=== PATIENT | male | born 1970 | race Two or more races ===

== ENCOUNTER 2017-07-11 15:42 | Inpatient (IN) | payer MEDICARE, OTHER ==
[~2017-07-11] VITALS: Ht 182.9 cm; Wt 61.2 kg
[2017-07-11 15:50] VITALS: BP 106/63
[2017-07-11 17:13] LABS: HEMATOCRIT 31.1 % (42.0-52.0); HEMOGLOBIN 10.4 G/DL (14.2-18.0); MEAN CORPUSCULAR VOLUME 89 FL (80-99); PLATELET COUNT 83 K/UL (150-450); RED BLOOD COUNT 3.51 M/UL (4.70-6.10); RED CELL DISTRIBUTION WIDTH 14.2 % (11.6-14.8); WHITE BLOOD COUNT 2.5 K/UL (4.8-10.8)
[2017-07-11 17:15] LABS: BASOPHILS % (AUTO) 1.6 % (0.0-2.0); EOSINOPHILS % (AUTO) 6.2 % (0.0-3.0); LYMPHOCYTES % (AUTO) 30.8 % (20.0-45.0); MONOCYTES % (AUTO) 8.7 % (1.0-10.0); NEUTROPHILS % (AUTO) 52.7 % (45.0-75.0)
[2017-07-11] MEDS ORDERED: VENLAFAXINE H37.5 MG ORAL (17:23)
[2017-07-11] MEDS ORDERED: FAMCICLOVIR500 MG ORAL (17:23)
[2017-07-11] MEDS ORDERED: FLUCONAZOLE100 MG ORAL (17:23)
[2017-07-11] MEDS ORDERED: GABAPENTIN300 MG ORAL (17:23)
[2017-07-11] MEDS ORDERED: ZYPREXA10 MG ORAL (17:23)
[2017-07-11 17:30] LABS: ANION GAP 8 mmol/L (5-15); BLOOD UREA NITROGEN 12 mg/dL (7-18); CALCIUM 7.8 MG/DL (8.5-10.1); CARBON DIOXIDE 23 MMOL/L (21-32); CHLORIDE 106 MMOL/L (98-107); CREATININE 0.7 MG/DL (0.55-1.30); POTASSIUM 3.6 MMOL/L (3.5-5.1); SODIUM 137 MMOL/L (136-145)
[2017-07-11 17:35] LABS: ALANINE AMINOTRANSFERASE 60 U/L (12-78); ALBUMIN 2.2 G/DL (3.4-5.0); ALBUMIN/GLOBULIN RATIO 0.5 (1.0-2.7); ALKALINE PHOSPHATASE 220 U/L (46-116); ASPARTATE AMINO TRANSFERASE 69 U/L (15-37); BILIRUBIN,TOTAL 0.5 MG/DL (0.2-1.0)
[2017-07-11 18:39] VITALS: BP 121/79
[2017-07-11 19:15] LABS: APPEARANCE,URINE CLEAR; BILIRUBIN, URINE NEGATIVE (NEGATIVE); GLUCOSE, URINE (UA) NEGATIVE (NEGATIVE); KETONES,URINE NEGATIVE (NEGATIVE); LEUKOCYTE ESTERASE ,URINE 1+ (NEGATIVE); NITRITE,URINE NEGATIVE (NEGATIVE); PH,URINE 6 (4.5-8.0); PROTEIN,URINE NEGATIVE (NEGATIVE); UROBILINOGEN,URINE 4 MG/DL (0.0-1.0)
[2017-07-11 19:16] LABS: COLOR,URINE YELLOW
[2017-07-11 19:32] VITALS: BP 117/71
[2017-07-11] MEDS: D5NS 1,000 ML IV SCH (21:45)
[2017-07-11 22:30] VITALS: BP 113/67
--- NOTE | 2017-07-11 22:57 | Emergency Room Report ---
History of Present Illness General Chief Complaint: Abdominal Pain Source: Patient Present Illness HPI 46-year-old male presents ED for evaluation. Complaining of abdominal pain with nausea and vomiting. Also complaining of diarrhea. Pain as cramping, 7/10 , nonradiating. Started 3 days ago. Patient states he has history of full- blown AIDS. States his CD4 count is very low. Denies fevers or chills. Denies chest pain or shortness of breath. No other aggravating relieving factors. Denies any other associated symptoms Allergies: Coded Allergies: No Known Allergies (Unverified , 07/11/17) Patient History Past Medical History: HIV Past Surgical History: none Pertinent Family History: none Social History: Denies: smoking, alcohol use, drug use Immunizations: UTD Reviewed Nursing Documentation: PMH: Agreed, PSxH: Agreed Nursing Documentation-PMH Past Medical History: No History, Except For Hx Cardiac Problems: No Hx Cancer: Yes Hx Gastrointestinal Problems: Yes Hx Neurological Problems: No Review of Systems All Other Systems: negative except mentioned in HPI Physical Exam Vital Signs Date Time Temp Pulse Resp B/P (MAP) Pulse Ox O2 Delivery O2 Flow Rate FiO2 07/11/17 15:35 98.1 92 18 106/63 98 Room Air Sp02 EP Interpretation: reviewed, normal General Appearance: alert, GCS 15, non-toxic, cachetic, thin Head: normocephalic, atraumatic Eyes: bilateral eye normal inspection, bilateral eye PERRL ENT: hearing grossly normal, normal pharynx, no angioedema, normal voice Neck: full range of motion, supple/symm/no masses Respiratory: chest non-tender, lungs clear, normal breath sounds, speaking full sentences Cardiovascular #1: regular rate, rhythm, no edema Cardiovascular #2: 2+ carotid (R), 2+ carotid (L), 2+ radial (R), 2+ radial (L) , 2+ dorsalis pedis (R), 2+ dorsalis pedis (L) Gastrointestinal: normal bowel sounds, non tender, soft, non-distended, no guarding, no rebound Rectal: deferred Genitourinary: normal inspection, no CVA tenderness Musculoskeletal: back normal, gait/station normal, normal range of motion, non- tender Neurologic: alert, oriented x3, responsive, motor strength/tone normal, sensory intact, speech normal Psychiatric: judgement/insight normal, memory normal, mood/affect normal, no suicidal/homicidal ideation Reflexes: 3+ bicep (R), 3+ bicep (L), 3+ tricep (R), 3+ tricep (L), 3+ knee (R) , 3+ knee (L) Skin: normal color, no rash, warm/dry, well hydrated Lymphatic: no adenopathy Medical Decision Making Diagnostic Impression: Primary Impression: Colitis ER Course Hospital Course 46 yo M presents with vomiting and diarrhea Differential diagnoses include: gastroenteritis, colitis, dehydration Clinical course Patient placed on stretcher. After initial history and physical I ordered labs , IV fluids, pain medications Labs - leukopenia noted, Hb/Hct stable. electrolytes ok. Given patient's immunosuppressive state and persistent diarrhea believe he should be admitted. case endorsed to Dr Michaud I feel this is a highly complex case requiring extensive working including EKG/ Rhythm strip, Xray/CT/US, Blood/urine lab work, repeat exams while in ED, and administration of strong opiates/narcotics for pain control, admission to hospital or close patient follow up. Diagnosis - colitis Patient admitted to hospital in serious condition Labs Test 07/11/17 17:00 07/11/17 19:00 White Blood Count 2.5 K/UL (4.8-10.8) Red Blood Count 3.51 M/UL (4.70-6.10) Hemoglobin 10.4 G/DL (14.2-18.0) Hematocrit 31.1 % (42.0-52.0) Mean Corpuscular Volume 89 FL (80-99) Mean Corpuscular Hemoglobin 29.7 PG (27.0-31.0) Mean Corpuscular Hemoglobin Concent 33.5 G/DL (32.0-36.0) Red Cell Distribution Width 14.2 % (11.6-14.8) Platelet Count 83 K/UL (150-450) Mean Platelet Volume 9.9 FL (6.5-10.1) Neutrophils (%) (Auto) 52.7 % (45.0-75.0) Lymphocytes (%) (Auto) 30.8 % (20.0-45.0) Monocytes (%) (Auto) 8.7 % (1.0-10.0) Eosinophils (%) (Auto) 6.2 % (0.0-3.0) Basophils (%) (Auto) 1.6 % (0.0-2.0) Sodium Level 137 MMOL/L (136-145) Potassium Level 3.6 MMOL/L (3.5-5.1) Chloride Level 106 MMOL/L (98-107) Carbon Dioxide Level 23 MMOL/L (21-32) Anion Gap 8 mmol/L (5-15) Blood Urea Nitrogen 12 mg/dL (7-18) Creatinine 0.7 MG/DL (0.55-1.30) Estimat Glomerular Filtration Rate > 60 mL/min (>60) Glucose Level 107 MG/DL (74-106) Lactic Acid Level 1.40 mmol/L (0.66-2.22) Calcium Level 7.8 MG/DL (8.5-10.1) Total Bilirubin 0.5 MG/DL (0.2-1.0) Aspartate Amino Transf (AST/SGOT) 69 U/L (15-37) Alanine Aminotransferase (ALT/SGPT) 60 U/L (12-78) Alkaline Phosphatase 220 U/L (46-116) Total Protein 6.7 G/DL (6.4-8.2) Albumin 2.2 G/DL (3.4-5.0) Globulin 4.5 g/dL Albumin/Globulin Ratio 0.5 (1.0-2.7) Urine Color Yellow Urine Appearance Clear Urine pH 6 (4.5-8.0) Urine Specific [place] 1.015 (1.005-1.035) Urine Protein Negative (NEGATIVE) Urine Glucose (UA) Negative (NEGATIVE) Urine Ketones Negative (NEGATIVE) Urine Occult Blood Negative (NEGATIVE) Urine Nitrite Negative (NEGATIVE) Urine Bilirubin Negative (NEGATIVE) Urine Urobilinogen 4 MG/DL (0.0-1.0) Urine Leukocyte Esterase 1+ (NEGATIVE) Urine RBC 0-2 /HPF (0 - 0) Urine WBC 0-2 /HPF (0 - 0) Urine Squamous Epithelial Cells Occasional /LPF Urine Bacteria None /HPF (NONE) Last Vital Signs Date Time Temp Pulse Resp B/P (MAP) Pulse Ox O2 Delivery O2 Flow Rate FiO2 07/11/17 22:35 98.8 82 18 113/67 98 Room Air Status: improved Disposition: ADMITTED INPATIENT Condition: Serious Referrals: NON PHYSICIAN (PCP) JOSE BRUNSON M.D. Jul 11, 2017 22:57
[2017-07-12 05:34] LABS: HEMATOCRIT 30.3 % (42.0-52.0); HEMOGLOBIN 10.2 G/DL (14.2-18.0); MEAN CORPUSCULAR VOLUME 89 FL (80-99); PLATELET COUNT 71 K/UL (150-450); RED BLOOD COUNT 3.39 M/UL (4.70-6.10); RED CELL DISTRIBUTION WIDTH 14.7 % (11.6-14.8); WHITE BLOOD COUNT 2.2 K/UL (4.8-10.8)
[2017-07-12 05:54] LABS: ANION GAP 6 mmol/L (5-15); BLOOD UREA NITROGEN 11 mg/dL (7-18); CALCIUM 7.4 MG/DL (8.5-10.1); CARBON DIOXIDE 23 MMOL/L (21-32); CHLORIDE 110 MMOL/L (98-107); CREATININE 0.7 MG/DL (0.55-1.30); POTASSIUM 3.6 MMOL/L (3.5-5.1); SODIUM 139 MMOL/L (136-145)
[2017-07-12 05:58] LABS: ALANINE AMINOTRANSFERASE 53 U/L (12-78); ALBUMIN 1.9 G/DL (3.4-5.0); ALBUMIN/GLOBULIN RATIO 0.5 (1.0-2.7); ALKALINE PHOSPHATASE 199 U/L (46-116); ASPARTATE AMINO TRANSFERASE 63 U/L (15-37); BILIRUBIN,TOTAL 0.5 MG/DL (0.2-1.0)
[2017-07-12] MEDS: D5NS 1,000 ML IV SCH ×2 (07:45→17:43)
--- NOTE | 2017-07-12 09:43 | Diagnostic Imaging Report ---
Indication: Weakness, diarrheal illness, history of HIV/AIDS Technique: XRAY Chest 1v Comparison: None Findings: Heart size within upper limits for normal. Mediastinal contours are sharp. There is no definite focal airspace consolidation, no pleural effusion or pneumothorax. No acute osseous abnormality is identified. Visualized bowel gas pattern is unremarkable. Impression: No definite focal airspace consolidation. No pleural effusion or pneumothorax.
--- NOTE | 2017-07-12 11:14 | General Progress Note ---
Assessment/Plan Assessment/Plan GI CONSULT Assessment - poor historian - AIDS - Claribel esophagitis - N/V - Diarrhe - h/o HEP B - ?h/o colon CA Recommendations - Nystatin trial - ID eval - check CT abd/pelvis - stool cultures - check tumor markers Thank you Melody Jang Subjective Allergies: Coded Allergies: No Known Allergies (Unverified , 07/11/17) Objective Last 24 Hour Vital Signs Date Time Temp Pulse Resp B/P (MAP) Pulse Ox O2 Delivery O2 Flow Rate FiO2 07/11/17 22:35 98.8 82 18 113/67 98 Room Air 07/11/17 22:30 98.8 82 18 113/67 98 Room Air 07/11/17 19:32 98.1 88 16 117/71 97 Room Air 07/11/17 18:39 87 18 121/79 98 Room Air 07/11/17 15:50 98.1 18 106/63 98 Room Air 07/11/17 15:35 98.1 92 18 106/63 98 Room Air Intake and Output 07/11/17 07/12/17 19:00 07:00 Intake Total 0 ml 500 ml Balance 0 ml 500 ml Intake Oral 0 ml IV Total 500 ml Laboratory Tests 07/11/17 17:00: White Blood Count 2.5L, Red Blood Count 3.51L, Hemoglobin 10.4L, Hematocrit 31.1L, Mean Corpuscular Volume 89, Mean Corpuscular Hemoglobin 29.7, Mean Corpuscular Hemoglobin Concent 33.5, Red Cell Distribution Width 14.2, Platelet Count 83L, Mean Platelet Volume 9.9, Neutrophils (%) (Auto) 52.7, Lymphocytes (% ) (Auto) 30.8, Monocytes (%) (Auto) 8.7, Eosinophils (%) (Auto) 6.2H, Basophils (%) (Auto) 1.6, Sodium Level 137, Potassium Level 3.6, Chloride Level 106, Carbon Dioxide Level 23, Anion Gap 8, Blood Urea Nitrogen 12, Creatinine 0.7, Estimat Glomerular Filtration Rate > 60, Glucose Level 107H, Lactic Acid Level 1.40, Calcium Level 7.8L, Total Bilirubin 0.5, Aspartate Amino Transf (AST/SGOT ) 69H, Alanine Aminotransferase (ALT/SGPT) 60, Alkaline Phosphatase 220H, Total Protein 6.7, Albumin 2.2L, Globulin 4.5, Albumin/Globulin Ratio 0.5L 07/11/17 19:00: Urine Color Yellow, Urine Appearance Clear, Urine pH 6, Urine Specific [place] 1.015, Urine Protein Negative, Urine Glucose (UA) Negative, Urine Ketones Negative, Urine Occult Blood Negative, Urine Nitrite Negative, Urine Bilirubin Negative, Urine Urobilinogen 4H, Urine Leukocyte Esterase 1+H, Urine RBC 0-2H, Urine WBC 0-2, Urine Squamous Epithelial Cells Occasional, Urine Bacteria None 07/12/17 05:10: White Blood Count 2.2L, Red Blood Count 3.39L, Hemoglobin 10.2L, Hematocrit 30.3L, Mean Corpuscular Volume 89, Mean Corpuscular Hemoglobin 29.9, Mean Corpuscular Hemoglobin Concent 33.6, Red Cell Distribution Width 14.7, Platelet Count 71L, Mean Platelet Volume 9.1, Neutrophils (%) (Auto) , Lymphocytes (%) ( Auto) , Monocytes (%) (Auto) , Eosinophils (%) (Auto) , Basophils (%) (Auto) , Sodium Level 139, Potassium Level 3.6, Chloride Level 110H, Carbon Dioxide Level 23, Anion Gap 6, Blood Urea Nitrogen 11, Creatinine 0.7, Estimat Glomerular Filtration Rate > 60, Glucose Level 102, Calcium Level 7.4L, Total Bilirubin 0.5, Aspartate Amino Transf (AST/SGOT) 63H, Alanine Aminotransferase ( ALT/SGPT) 53, Alkaline Phosphatase 199H, Total Protein 6.0L, Albumin 1.9L, Globulin 4.1, Albumin/Globulin Ratio 0.5L, Differential Total Cells Counted 100 , Neutrophils % (Manual) 38L, Lymphocytes % (Manual) 46H, Monocytes % (Manual) 10, Eosinophils % (Manual) 6H, Basophils % (Manual) 0, Band Neutrophils 0, Platelet Estimate DecreasedL, Platelet Morphology Normal, Hypochromasia 1+, Anisocytosis 1+ Height (Feet): 6 Height (Inches): 0.00 Weight (Pounds): 135 WALLYPRASHANTH LINDER Jul 12, 2017 11:14
[2017-07-12] MEDS: Venlafaxine XR 75mg cap ORAL SCH (11:17)
[2017-07-12 12:00] VITALS: BP 104/64
[2017-07-12] MEDS: Nystatin Susp 500,000 units/5ml ORAL SCH ×3 (14:37→21:15)
[2017-07-12] MEDS ORDERED: D5NS 1000ml IV ONE (15:10)
[2017-07-12] MEDS ORDERED: Tubing IV Secondary IV ONE (15:10)
--- NOTE | 2017-07-12 19:15 | History and Physical Report ---
DATE OF ADMISSION: 07/11/2017 REASON FOR ADMISSION: Abdominal pain and colitis. HISTORY OF PRESENT ILLNESS: The patient is a 46-year-old male with history of abdominal pain with nausea and vomiting, also with diarrhea. The patient describes the pain as cramping, nonradiating. The patient noticed the pain has been ongoing for 3 days. The patient with history of AIDS and states CD4 count is low. Denies any fevers or chills. Denies any aggravating factors. The patient is seen and evaluated in the emergency room and noted to have evidence of colitis, also with evidence of leukopenia. The patient now admitted for further evaluation, hydration, and GI and ID evaluation. PAST MEDICAL HISTORY: Notable for HIV/age. MEDICATIONS: Reviewed. ALLERGIES: Reviewed. SOCIAL HISTORY: Nonsmoker and nondrinker. The patient is disabled. REVIEW OF SYSTEMS: All 10 points reviewed and otherwise negative with the exception of the above. PHYSICAL EXAMINATION: GENERAL: This is a well-developed male, somewhat frail. VITAL SIGNS: Blood pressure 113/67, pulse 82, respiratory rate 18, temperature 98.8, and saturation 98%. HEENT: Fairly negative. Extraocular movements are grossly intact. NECK: Supple. No adenopathy. LUNGS: Otherwise fairly clear. No rhonchi or wheezes. CARDIAC: Normal S1 and S2. Regular rate and rhythm without murmurs, rubs, or gallops. ABDOMEN: Soft, but has some mild tenderness diffusely. EXTREMITIES: No cyanosis or clubbing. No edema. NEUROLOGICAL: Grossly nonfocal. SKIN: No clear rashes. LABORATORY DATA: All reviewed. Notable for elevated liver enzymes. The albumin is very low at 1.9. White count 2.2, hemoglobin 10.2, hematocrit 30, and platelets of 71,000. IMPRESSION: 1. Evidence of colitis. 2. Abdominal pain. 3. Acquired immune deficiency syndrome. 4. Pancytopenia. 5. Human immunodeficiency virus. 6. Evidence of elevated liver enzymes. 7. Severe protein-calorie malnutrition. RECOMMENDATIONS: Supportive care. Empiric Flagyl. Check stool. Resume HIV medication. Obtain ID evaluation. Obtain GI evaluation. Obtain T-cell subsets as well as viral load. Clear liquid diet and antiemetics. Stabilizing disposition when patient improves. Julio Michaud M.D. DR: SARAHY JOB#: [id number] CC:
[2017-07-12 20:44] LABS: FERRITIN 222 NG/ML (8-388); LACTATE DEHYDROGENASE 225 U/L (81-234)
--- NOTE | 2017-07-12 21:30 | Consultation ---
DATE OF CONSULTATION: 07/12/2017 INFECTIOUS DISEASES CONSULTATION CONSULTING PHYSICIAN: Lucho Kingsley M.D. REFERRING PHYSICIAN: Julio Michaud M.D. REASON FOR CONSULTATION: Colitis. HISTORY OF PRESENTING ILLNESS: This is a 46-year-old gentleman with a history of HIV, T-cell count unknown, who comes in with abdominal pain, nausea, and vomiting as well as diarrhea. He has AIDS. He does not recall his T-cell count. He was found to have colitis and an Infectious Diseases consultation has been obtained for antibiotics. PAST MEDICAL HISTORY: 1. History of HIV. 2. History of PCP. 3. History of syphilis, status post treatment. 4. History of hepatitis B. 5. ? history of colon CA. 6. Claribel esophagitis. MEDICATIONS: As an inpatient, he is on famotidine, nystatin, famciclovir, gabapentin, Zyprexa, Effexor, , Emtriva, Flagyl, Zofran, and Tylenol. ALLERGIES: No known drug allergies. SOCIAL HISTORY: He does not smoke, drink, or use drugs. FAMILY HISTORY: Unknown. REVIEW OF SYSTEMS: RESPIRATORY: He had fever and chills. No cough. No shortness of breath or chest pain. CARDIAC: No chest pain. No palpitations. No dizziness. No syncope. GASTROINTESTINAL: He had nausea and vomiting. He complains of abdominal pain and diarrhea. PHYSICAL EXAMINATION: VITAL SIGNS: Temperature of 98.8, T-max of 98.8, pulse of 82, respiratory rate of 18, blood pressure 113/67, and O2 saturation of 98%. HEENT: Pupils equally reactive to light and accommodation. Mouth appears clean without thrush. NECK: Supple. No adenopathy. No JVD. CARDIOVASCULAR: Regular rate and rhythm. No murmurs. LUNGS: Clear to auscultation bilaterally. No crackles. No wheezes. ABDOMEN: Soft and nontender. No organomegaly. EXTREMITIES: No cyanosis. No clubbing. No edema. LABORATORY AND DIAGNOSTIC DATA: White count 2.2, hemoglobin 10.2, hematocrit 30.3, MCV 89, and platelet count of 71. Sodium 139, potassium 3.6, chloride 110, bicarb 23, BUN 11, creatinine 0.7, glucose 102, calcium 7.4. Total bilirubin 0.5. AST 63, ALT 53, and alkaline phosphatase 199. Total protein 6, albumin 1.9. UA is showing 0 to 2 white cells. Chest x-ray showing no definite consolidation. No pleural effusion or pneumothorax noted. ASSESSMENT: This is a 46-year-old gentleman with history of acquired immunodeficiency syndrome, who comes in with nausea, vomiting, abdominal pain, and diarrhea. There is a concern for colitis, would be concerned regarding Cytomegalovirus colitis or possibly ischemic colitis or Clostridium difficile colitis or possible gastroenteritis. PLAN: 1. Continue Flagyl. 2. We will order a CMV PCR. 3. We will order stool for C. difficile colitis and stool cultures. 4. We will follow up cultures and adjust antibiotics accordingly. I would like to thank, Dr. Michaud, for this consultation. Lucho Kingsley M.D. DR: Hardeep JOB#: [id number] CC: Julio Michaud M.D.; Fax#: [phone]
[2017-07-12 21:33] LABS: % IRON SATURATION 22 % (15-50); IRON 45 ug/dL (50-175); TOTAL IRON BINDING CAPACITY 209 ug/dL (250-450)
[2017-07-13] VITALS: BP 99/75
--- NOTE | 2017-07-13 01:00 | Consultation ---
DATE OF CONSULTATION: 07/12/2017 GASTROENTEROLOGY CONSULTATION CONSULTING PHYSICIAN: Jude Jang M.D. CHIEF COMPLAINT: I was asked to see this patient by Dr. Julio Michaud for evaluation of abdominal issues. HISTORY OF PRESENT ILLNESS: The patient is a 46-year-old man, who is a poor historian, who comes in with somewhat vague abdominal complaints. The patient states that he has had nausea, vomiting, and loose stools for about three days. He gives very little details, but he does say yes, advanced AIDS and he is being followed by outside physicians. The patient wants to eat and he is hungry and he is walking around the hallway. He states that he has had extensive evaluations and he states he brought some records, but the records are mainly patient registration information. The patient states he has had a history of colon cancer, but it was not removed and in fact "this has shrunken in size with time." He states his last endoscopy and colonoscopy was about a year ago by another outdoor studies director. He does complain of sore throat from Claribel pharyngitis, which can be confirmed on examination. He also has a history of diabetes, hepatitis B, and renal failure, but details are not clear. PAST MEDICAL HISTORY: History of AIDS, colon cancer, diabetes, renal failure, hepatitis B virus, and Claribel esophagitis. MEDICATIONS: See the chart list for details. FAMILY HISTORY: Noncontributory. SOCIAL HISTORY: The patient lives in [facility] and his mother helps to look after his affairs. REVIEW OF SYSTEMS: Otherwise negative. PHYSICAL EXAMINATION: GENERAL: Cachectic, chronically-ill appearing man, seen in his room. HEENT: Normocephalic and atraumatic. There is some temporal wasting. Dentition is fair. Oropharynx showed Claribel pharyngitis. NECK: Supple. CHEST: Clear to auscultation. CARDIOVASCULAR: Revealed a regular rate. ABDOMEN: Soft, somewhat scaphoid. There is no tenderness. EXTREMITIES: Revealed no edema. LABORATORY DATA: Noted. The patient had some degree of pancytopenia. ASSESSMENT: This patient has acquired immunodeficiency syndrome and appears to be chronically ill and cachectic. Based on the information and presentation, I suspect that he is poorly controlled, but his T-cell count and viral load will have to be checked. As such, his previous opportunistic infections and his stool should be checked for various elements. Infectious Diseases consult should be called to see the patient as well. In the meantime, I will check the stool cultures and Clostridium difficile. Further assays can also be done based on the results of preliminary evaluation. The patient states he has had some complaints of nausea and vomiting, but it has not done so yet over here. He clearly has Claribel pharyngitis on examination and therefore he would benefit from nystatin trial. He also has had abnormal liver tests, which may be due to his self-reported history of hepatitis B. I will check his hepatitis markers, but we will also check a CT scan of the abdomen and pelvis to evaluate various organs including colon. RECOMMENDATIONS: Per above discussion and per orders written in the written. Thank you for asking me to participate in the care of this patient. Jude Jang M.D. DR: MICHAEL JOB#: [id number] CC: REBECCA
[2017-07-13 04:00] VITALS: BP 100/56
[2017-07-13] MEDS: D5NS 1,000 ML IV SCH ×3 (05:31→23:45)
[2017-07-13 08:01] VITALS: BP 109/69
[2017-07-13] MEDS: Nystatin Susp 500,000 units/5ml ORAL SCH ×4 (08:30→21:00)
[2017-07-13] MEDS: Famciclovir 500 tab ORAL SCH ×5 (08:36→17:36)
[2017-07-13] MEDS: Venlafaxine XR 75mg cap ORAL SCH (08:36)
--- NOTE | 2017-07-13 08:57 | General Progress Note ---
Assessment/Plan Assessment/Plan IMPRESSION: 1. Evidence of colitis. 2. Abdominal pain. 3. Acquired immune deficiency syndrome. 4. Pancytopenia. 5. Human immunodeficiency virus. 6. Evidence of elevated liver enzymes. 7. Severe protein-calorie malnutrition. PLAN consultants appreciated await Tcell subsets and viral load await stool results IV hydration await imaging will likely need placement impression, plan, and exam edited and reviewed in detail care discussed with RN Subjective Allergies: Coded Allergies: No Known Allergies (Unverified , 07/11/17) Subjective care noted and reviewed remains weak some pain Objective Last 24 Hour Vital Signs Date Time Temp Pulse Resp B/P (MAP) Pulse Ox O2 Delivery O2 Flow Rate FiO2 07/13/17 08:01 98.3 72 19 109/69 100 07/13/17 04:00 97.9 73 20 100/56 97 07/13/17 00:00 97.9 72 21 99/75 100 07/12/17 16:00 98.2 82 16 97 Nasal Cannula 2.0 07/12/17 12:00 98.2 82 18 104/64 98 Intake and Output 07/12/17 07/13/17 19:00 07:00 Intake Total 500 ml Balance 500 ml IV Total 500 ml Laboratory Tests 07/12/17 18:26: Reticulocyte Count 0.5, Iron Level 45L, Total Iron Binding Capacity 209L, Percent Iron Saturation 22, Unsaturated Iron Binding 164, Ferritin 222, Lactate Dehydrogenase 225, Vitamin B12 Level > 2000H, Folate 8.5L Height (Feet): 6 Height (Inches): 0.00 Weight (Pounds): 135 Objective GENERAL: This is a well-developed male, weak HEENT: Fairly negative. Extraocular movements are grossly intact. NECK: Supple. No adenopathy. LUNGS: Otherwise fairly clear. No rhonchi or wheezes. CARDIAC: Normal S1 and S2. Regular rate and rhythm without murmurs, rubs, or gallops. ABDOMEN: Soft, but has some mild tenderness diffusely. no HSM no distention EXTREMITIES: No cyanosis or clubbing. No edema. NEUROLOGICAL: Grossly nonfocal. SKIN: No clear rashes. SID CASEY Jul 13, 2017 08:57
--- NOTE | 2017-07-13 09:51 | Infectious Diseases Prog Note ---
Assessment/Plan Assessment/Plan A; Abdominal pain HIV pancytopenia P Continue Flagyl Continue HIV treatment will f/u CT scan of abdomen & Pelvis will f/u CD4 count & HIV viral load Subjective ROS Limited/Unobtainable: No Constitutional: Reports: no symptoms Cardiovascular: Reports: no symptoms Gastrointestinal/Abdominal: Reports: other - pain, no diarrhea Genitourinary: Reports: no symptoms Neurologic: Reports: no symptoms Allergies: Coded Allergies: No Known Allergies (Unverified , 07/11/17) Objective Vital Signs Last 24 Hour Vital Signs Date Time Temp Pulse Resp B/P (MAP) Pulse Ox O2 Delivery O2 Flow Rate FiO2 07/13/17 08:01 98.3 72 19 109/69 100 07/13/17 04:00 97.9 73 20 100/56 97 07/13/17 00:00 97.9 72 21 99/75 100 07/12/17 16:00 98.2 82 16 97 Nasal Cannula 2.0 07/12/17 12:00 98.2 82 18 104/64 98 Height (Feet): 6 Height (Inches): 0.00 Weight (Pounds): 135 General Appearance: no acute distress HEENT: other - poor dentition Cardiovascular: normal rate Abdomen: soft, non tender Extremities: no edema Neurologic/Psychiatric: alert, oriented x 3, responsive Microbiology Date/Time Source Procedure Growth Status 07/11/17 17:00 Blood Blood Culture - Preliminary NO GROWTH AFTER 24 HOURS Resulted 07/11/17 16:45 Blood Blood Culture - Preliminary NO GROWTH AFTER 24 HOURS Resulted Laboratory Tests Test 07/12/17 18:26 Reticulocyte Count 0.5 % (0.0-2.0) Iron Level 45 ug/dL (50-175) L Total Iron Binding Capacity 209 ug/dL (250-450) L Percent Iron Saturation 22 % (15-50) Unsaturated Iron Binding 164 ug/dL (112-346) Ferritin 222 NG/ML (8-388) Lactate Dehydrogenase 225 U/L (81-234) Vitamin B12 Level > 2000 PG/ML (193-986) H Folate 8.5 NG/ML (8.6-58.9) L Current Medications Medications (Trade) Dose Ordered Sig/Lonnie Route PRN Reason Start Time Stop Time Status Last Admin Dose Admin Acetaminophen (Tylenol) 650 mg Q4HR PRN ORAL MILD PAIN, FEVER >100.5 07/11/17 21:45 08/10/17 21:44 Darunavir (Prezista) 800 mg DAILY ORAL 07/12/17 09:00 08/11/17 08:59 UNV Dextrose/Sodium Chloride 1,000 ml @ 100 mls/hr Q10H IV 07/11/17 21:45 08/10/17 21:44 07/13/17 05:31 Emtricitabine (Emtriva) 200 mg DAILY ORAL 07/12/17 09:00 08/11/17 08:59 UNV Famciclovir (Famvir) 500 mg TID ORAL 07/12/17 09:00 08/11/17 08:59 Famotidine (Pepcid) 20 mg BID ORAL 07/12/17 18:00 08/11/17 17:59 07/12/17 17:51 Gabapentin (Neurontin) 300 mg THREE TIMES A DAY ORAL 07/12/17 09:00 08/11/17 08:59 07/13/17 08:36 Metronidazole 100 ml @ 100 mls/hr Q8HR IVPB 07/11/17 22:00 07/18/17 21:59 07/13/17 05:31 Nystatin (Nystatin) 5 ml QID ORAL 07/12/17 13:00 07/19/17 12:59 07/13/17 08:30 Ondansetron HCl (Zofran) 4 mg Q6HR PRN IVP Nausea & Vomiting 07/11/17 21:45 08/10/17 21:44 07/13/17 08:36 Patient Own Medication (Patient's Own Med) 1 ea DAILY ORAL 07/12/17 09:00 08/11/17 08:59 UNV Venlafaxine HCl (Effexor-XR) 75 mg DAILY ORAL 07/12/17 09:00 08/11/17 08:59 07/12/17 11:17 BOBBI RON Jul 13, 2017 09:51
[2017-07-13] MEDS: Ritonavir 100mg tab ORAL SCH (12:00)
[2017-07-13] MEDS: Emtricitabine 200mg tab ORAL SCH (12:00)
[2017-07-13 15:49] VITALS: BP 124/75
[2017-07-13] MEDS ORDERED: Tubing IV Secondary IV ONE (16:05)
[2017-07-13] MEDS ORDERED: D5NS 1000ml IV ONE (16:05)
[2017-07-13] MEDS ORDERED: DESCOVY 200-251 EACH PO (17:04)
[2017-07-13] MEDS ORDERED: NEUPOGEN300 MCG/0. SUBQ (17:04)
[2017-07-13] MEDS ORDERED: CYCLOBENZAPRINE10 MG PO (17:04)
[2017-07-13] MEDS ORDERED: AZITHROMYCIN600 MG PO (17:04)
[2017-07-13] MEDS ORDERED: IMODIUM2 MG PO (17:04)
[2017-07-13] MEDS ORDERED: LORAZEPAM0.5 MG PO (17:04)
[2017-07-13] MEDS ORDERED: HYDROMORPHONE HC4 M1 PO (17:04)
[2017-07-13] MEDS ORDERED: FLUCONAZOLE200 MG PO (17:04)
[2017-07-13] MEDS ORDERED: SULFAMETHOXAZO1 EAC2 PO (17:04)
[2017-07-13] MEDS ORDERED: IBUPROFEN600 M1 PO (17:07)
--- NOTE | 2017-07-13 17:30 | Consultation ---
DATE OF CONSULTATION: 07/12/2017 NOTE: POOR AUDIO HEMATOLOGY/ONCOLOGY CONSULTATION CONSULTING PHYSICIAN: Dex Durham M.D. REQUESTING PHYSICIAN: Julio Michaud M.D. REASON FOR CONSULTATION: Evaluation of pancytopenia. IDENTIFICATION DATA: Dear Dr. Michaud, Thank you for the courtesy of this consultation. The patient is a pleasant with a past medical history, which is significant for HIV, at this time presents with nausea, vomiting as well as diarrhea, noted to be cramping, nonradiating has been ongoing for several days. Denies any fevers or chills. History of AIDS, CD4 count has been in the past, at this time presents to the ER, noted to have evidence of colitis, also evidence of leukopenia. Hematology Service was consulted for further evaluation and underlying treatment. PAST MEDICAL HISTORY: HIV history. MEDICATIONS: Reviewed. ALLERGIES: Reviewed. SOCIAL HISTORY: Nonsmoker and nondrinker. REVIEW OF SYSTEMS: CONSTITUTIONAL: No fevers, chills, or night sweats. SKIN: No rashes, bumps, or itching. HEENT: No headache, hearing or vision changes. BREASTS: No lumps, pain, or discharge. PULMONARY: No cough, sputum, or shortness of breath. GASTROINTESTINAL: nausea, vomiting, diarrhea. GENITOURINARY: No dysuria, frequency, or urgency. MUSCULOSKELETAL: No joint swelling, muscle pain, or trauma. PHYSICAL EXAMINATION: GENERAL: No acute distress. VITAL SIGNS: Reviewed. PULMONARY: Decreased breath sounds. CARDIOVASCULAR: Regular rate. No S3 or S4 reported. No gallops. ABDOMEN: Soft, nontender, and nondistended. Mild noted throughout. EXTREMITIES: No cyanosis, swelling, or edema reported. LABORATORY AND DIAGNOSTIC DATA: WBC noted to be currently at , hemoglobin 10.2, and hematocrit 30, and platelet count 71,000. ASSESSMENT AND RECOMMENDATIONS: 1. Pancytopenia, likely secondary to underlying history of human immunodeficiency virus/acquired immunodeficiency syndrome in the setting of his low CD4 count, currently hepatitis panel pending, human immunodeficiency virus status pending, CD4 count. ID Service consulted. 2. Anemia due to underlying chronic disease. I have obtained a hemoglobin . Hemoglobin goal is above 7. 3. Leukopenia, likely secondary to again underlying human immunodeficiency virus/acquired immunodeficiency syndrome in addition to underlying colitis. 4. Transaminitis, elevated liver function tests. Continue to closely monitor. 5. Severe protein-calorie malnutrition. 6. Diarrhea, currently is on Bactrim antibiotics. 7. due to dehydration. I appreciate the consultation. Dex Durham M.D. DR: FIDELINA JOB#: [id number] CC:
[2017-07-13 20:00] VITALS: BP 121/79
--- NOTE | 2017-07-13 20:06 | General Progress Note ---
Assessment/Plan Assessment/Plan Assessment - AIDS - Claribel esophagitis - N/V - improved - Diarrhea - improved - h/o HEP B - ? h/o colon CA Recommendations - Nystatin trial - ID eval - check CT abd/pelvis - pending - stool cultures - check tumor markers - hepatitis serologies pending Subjective Allergies: Coded Allergies: No Known Allergies (Unverified , 07/11/17) Subjective Feels OK no abd pain throat slightly better Objective Last 24 Hour Vital Signs Date Time Temp Pulse Resp B/P (MAP) Pulse Ox O2 Delivery O2 Flow Rate FiO2 07/13/17 15:49 97.0 76 19 124/75 98 07/13/17 08:01 98.3 72 19 109/69 100 07/13/17 04:00 97.9 73 20 100/56 97 07/13/17 00:00 97.9 72 21 99/75 100 Intake and Output 07/12/17 07/13/17 19:00 07:00 Intake Total 500 ml Balance 500 ml IV Total 500 ml Height (Feet): 6 Height (Inches): 0.00 Weight (Pounds): 135 Objective Thin WM NCAT supple CTA RRR soft ND NT no edema PRASHANTH HUDSON Jul 13, 2017 20:06
--- NOTE | 2017-07-13 23:55 | Consultation ---
History of Present Illness General Date patient seen: Jul 12, 2017 Chief Complaint: Abdominal Pain Present Illness HPI 46-year-old male with history of abdominal pain with nausea and vomiting, also with diarrhea. the pt has been noncooperative and refusing some meds Allergies: Coded Allergies: No Known Allergies (Unverified , 07/11/17) Medication History Scheduled Azithromycin* (Zithromax*), 1,200 MG PO ONCE A WEEK, (Reported) Cyclobenzaprine Hcl* (Flexeril*), 10 MG PO THREE TIMES A DAY, (Reported) Emtricitabine/Tenofov Alafenam (Descovy 200-25 mg Tablet), 200 MG PO DAILY, ( Reported) Famciclovir* (Famvir*), 500 MG ORAL TID, (Reported) Filgrastim (Neupogen), 300 MCG SUBQ 3XW, (Reported) Fluconazole (Fluconazole), 100 MG ORAL DAILY, (Reported) Fluconazole (Fluconazole), 200 MG PO DAILY, (Reported) Gabapentin* (Gabapentin*), 300 MG ORAL THREE TIMES A DAY, (Reported) Hydromorphone Hcl (Hydromorphone Hcl), 4 MG PO EVERY 4 HOURS, (Reported) Ibuprofen (Ibuprofen), 600 MG PO EVERY 6 HOURS, (Reported) Loperamide HCl (Loperamide), 2 MG PO NEEDED, (Reported) Lorazepam* (Lorazepam*), 0.5 MG PO FOUR TIMES A DAY, (Reported) Olanzapine* (Zyprexa*), 10 MG ORAL DAILY, (Reported) Sulfamethoxazole/Trimethoprim Ds Tablet* (Sulfamethoxazole-Tmp Ds Tablet*), 800 MG PO DAILY, (Reported) Venlafaxine Hcl* (Effexor*), 75 MG ORAL DAILY, (Reported) Patient History History Provided By: Medical Record Healthcare decision maker Resuscitation status Do Not Resuscitate Advanced Directive on File No Physical Exam Last 24 Hour Vital Signs Date Time Temp Pulse Resp B/P (MAP) Pulse Ox O2 Delivery O2 Flow Rate FiO2 07/13/17 20:00 97.7 66 18 121/79 98 07/13/17 15:49 97.0 76 19 124/75 98 07/13/17 08:01 98.3 72 19 109/69 100 07/13/17 04:00 97.9 73 20 100/56 97 07/13/17 00:00 97.9 72 21 99/75 100 Intake and Output 07/12/17 07/13/17 19:00 07:00 Intake Total 500 ml Balance 500 ml IV Total 500 ml Height (Feet): 6 Height (Inches): 0.00 Weight (Pounds): 135 Medications Current Medications Medications (Trade) Dose Ordered Sig/Lonnie Route PRN Reason Start Time Stop Time Status Last Admin Dose Admin Acetaminophen (Tylenol) 650 mg Q4HR PRN ORAL MILD PAIN, FEVER >100.5 07/11/17 21:45 08/10/17 21:44 Darunavir (Prezista) 800 mg DAILY ORAL 07/13/17 12:00 08/12/17 11:59 Dextrose/Sodium Chloride 1,000 ml @ 100 mls/hr Q10H IV 07/11/17 21:45 08/10/17 21:44 07/13/17 05:31 Emtricitabine (Emtriva) 200 mg DAILY ORAL 07/13/17 12:00 08/12/17 11:59 Famciclovir (Famvir) 500 mg TID ORAL 07/12/17 09:00 08/11/17 08:59 07/13/17 17:36 Famotidine (Pepcid) 20 mg BID ORAL 07/12/17 18:00 08/11/17 17:59 07/13/17 17:34 Gabapentin (Neurontin) 300 mg THREE TIMES A DAY ORAL 07/12/17 09:00 08/11/17 08:59 07/13/17 17:34 Metronidazole 100 ml @ 100 mls/hr Q8HR IVPB 07/11/17 22:00 07/18/17 21:59 07/13/17 21:45 Nystatin (Nystatin) 5 ml QID ORAL 07/12/17 13:00 07/19/17 12:59 07/13/17 17:33 Ondansetron HCl (Zofran) 4 mg Q6HR PRN IVP Nausea & Vomiting 07/11/17 21:45 08/10/17 21:44 07/13/17 08:36 Ritonavir (Norvir) 100 mg DAILY ORAL 07/13/17 12:00 08/12/17 11:59 Tenofovir Disoproxil Fumarate (Viread) 300 mg DAILY ORAL 07/13/17 12:00 08/12/17 11:59 Venlafaxine HCl (Effexor-XR) 75 mg DAILY ORAL 07/12/17 09:00 08/11/17 08:59 07/12/17 11:17 Assessment/Plan Status: stable Assessment/Plan bipolar hiv celexa 10mg qam the pt iss reluctant to take any other meds Valeriy Burger M.D. Jul 13, 2017 23:55
--- NOTE | 2017-07-14 00:25 | General Progress Note ---
Assessment/Plan Assessment/Plan 1. Pancytopenia, likely secondary to underlying history of human immunodeficiency virus/acquired immunodeficiency syndrome in the setting of his low CD4 count, --> currently hepatitis panel pending, human immunodeficiency virus status pending, check CD4 count. --> ID Service consulted. --> Trend cbc and monitor closely. 2. Anemia due to underlying chronic disease. --> Anemia workup reviewed. --> Hemoglobin goal is above 7. 3. Leukopenia, likely secondary to again underlying human immunodeficiency virus /acquired immunodeficiency syndrome in addition to underlying colitis. 4. Transaminitis, elevated liver function tests. Continue to closely monitor. 5. Severe protein-calorie malnutrition. 6. Diarrhea, currently is on Bactrim antibiotics. Subjective Date patient seen: Jul 13, 2017 Constitutional: Denies: no symptoms, chills, diaphoresis, fever, malaise, weakness, other HEENT: Denies: no symptoms, eye pain, blurred vision, tearing, double vision, ear pain, ear discharge, nose pain, nose congestion, throat pain, throat swelling, mouth pain, mouth swelling, other Cardiovascular: Denies: no symptoms, chest pain, edema, irregular heart rate, lightheadedness, palpitations, syncope, other Respiratory: Denies: no symptoms, cough, orthopnea, shortness of breath, SOB with excertion, SOB at rest, sputum, stridor, wheezing, other Gastrointestinal/Abdominal: Denies: no symptoms, abdomen distended, abdominal pain, black stools, tarry stools, blood in stool, constipated, diarrhea, difficulty swallowing, nausea, poor appetite, poor fluid intake, rectal bleeding , vomiting, other Genitourinary: Denies: no symptoms, burning, discharge, frequency, flank pain, hematuria, incontinence, pain, urgency, other Allergies: Coded Allergies: No Known Allergies (Unverified , 07/11/17) Subjective On antibiotics. Afebrile. Objective Last 24 Hour Vital Signs Date Time Temp Pulse Resp B/P (MAP) Pulse Ox O2 Delivery O2 Flow Rate FiO2 07/13/17 20:00 97.7 66 18 121/79 98 07/13/17 15:49 97.0 76 19 124/75 98 07/13/17 08:01 98.3 72 19 109/69 100 07/13/17 04:00 97.9 73 20 100/56 97 Intake and Output 07/13/17 07/14/17 19:00 07:00 Intake Total 560 ml Balance 560 ml Intake Oral 560 ml # Voids 4 Height (Feet): 6 Height (Inches): 0.00 Weight (Pounds): 135 General Appearance: confused Dex Durham Jul 14, 2017 00:25
[2017-07-14] MEDS: D5NS 1,000 ML IV SCH (05:18)
[2017-07-14 08:00] VITALS: BP 110/70
--- NOTE | 2017-07-14 08:06 | General Progress Note ---
Assessment/Plan Assessment/Plan IMPRESSION: 1. Evidence of colitis. 2. Abdominal pain. 3. Acquired immune deficiency syndrome. 4. Pancytopenia. 5. Human immunodeficiency virus. 6. Evidence of elevated liver enzymes. 7. Severe protein-calorie malnutrition. PLAN consultants appreciated refusing care return to same location patient aware of need for follow up refusing all care and imaging fully competent to make decisions and cleared by psych impression, plan, and exam edited and reviewed in detail care discussed with RN Subjective Allergies: Coded Allergies: No Known Allergies (Unverified , 07/11/17) Subjective care noted and reviewed remains weak refusing care per psych, ok to dc as patient competent Objective Last 24 Hour Vital Signs Date Time Temp Pulse Resp B/P (MAP) Pulse Ox O2 Delivery O2 Flow Rate FiO2 07/13/17 20:00 97.7 66 18 121/79 98 07/13/17 15:49 97.0 76 19 124/75 98 Intake and Output 07/13/17 07/14/17 19:00 07:00 Intake Total 560 ml 200 ml Balance 560 ml 200 ml Intake Oral 560 ml IV Total 200 ml # Voids 4 4 Height (Feet): 6 Height (Inches): 0.00 Weight (Pounds): 135 Objective GENERAL: This is a well-developed male, weak HEENT: Fairly negative. Extraocular movements are grossly intact. NECK: Supple. No adenopathy. LUNGS: Otherwise fairly clear. No rhonchi or wheezes. CARDIAC: Normal S1 and S2. Regular rate and rhythm without murmurs, rubs, or gallops. ABDOMEN: Soft, but has some mild tenderness diffusely. no HSM no distention EXTREMITIES: No cyanosis or clubbing. No edema. NEUROLOGICAL: Grossly nonfocal. SKIN: No clear rashes. SID CASEY Jul 14, 2017 08:06
[2017-07-14] MEDS ORDERED: Citalopram Hydrobromide 10mg Tab ORAL SCH (09:00)
[2017-07-14] MEDS: Emtricitabine 200mg tab ORAL SCH (09:00)
[2017-07-14] MEDS: Ritonavir 100mg tab ORAL SCH (09:00)
[2017-07-14] MEDS: Famciclovir 500 tab ORAL SCH ×2 (10:50→13:00)
[2017-07-14] MEDS: Nystatin Susp 500,000 units/5ml ORAL SCH ×2 (10:50→14:03)
[2017-07-14] MEDS: Venlafaxine XR 75mg cap ORAL SCH (10:50)
--- NOTE | 2017-07-14 12:12 | Infectious Diseases Prog Note ---
Assessment/Plan Assessment/Plan A; Abdominal pain HIV pancytopenia MRSA colonization P discontinue Flagyl Continue HIV treatment patient refused CT scan of abdomen & Pelvis will f/u CD4 count & HIV viral load Agree with discharge Subjective ROS Limited/Unobtainable: No Respiratory: Reports: no symptoms Gastrointestinal/Abdominal: Reports: other - heartburn Genitourinary: Reports: no symptoms Allergies: Coded Allergies: No Known Allergies (Unverified , 07/11/17) Objective Vital Signs Last 24 Hour Vital Signs Date Time Temp Pulse Resp B/P (MAP) Pulse Ox O2 Delivery O2 Flow Rate FiO2 07/14/17 08:00 97.6 77 18 110/70 93 07/13/17 20:00 97.7 66 18 121/79 98 07/13/17 15:49 97.0 76 19 124/75 98 Height (Feet): 6 Height (Inches): 0.00 Weight (Pounds): 135 General Appearance: no acute distress HEENT: mucous membranes moist Respiratory/Chest: lungs clear Cardiovascular: normal rate Abdomen: soft, non tender Extremities: no edema Neurologic/Psychiatric: alert, oriented x 3, responsive Microbiology Date/Time Source Procedure Growth Status 07/11/17 17:00 Blood Blood Culture - Preliminary NO GROWTH AFTER 48 HOURS Resulted 07/11/17 16:45 Blood Blood Culture - Preliminary NO GROWTH AFTER 48 HOURS Resulted 07/11/17 20:47 Nasal Nares Right MRSA Culture - Final Staphylococcus Aureus - Mrsa Complete 07/11/17 22:15 Rectal Mucosa VRE Culture - Final NO VANCOMYCIN RESISTANT ENTEROCOCCUS ... Complete Current Medications Medications (Trade) Dose Ordered Sig/Lonnie Route PRN Reason Start Time Stop Time Status Last Admin Dose Admin Acetaminophen (Tylenol) 650 mg Q4HR PRN ORAL MILD PAIN, FEVER >100.5 07/11/17 21:45 08/10/17 21:44 Al Hydroxide/Mg Hydroxide (Mylanta) 30 ml EVERY 4 HOURS PRN ORAL HEARTBURN 07/14/17 06:45 08/13/17 06:44 Citalopram Hydrobromide (celeXA) 10 mg DAILY ORAL 07/14/17 09:00 08/13/17 08:59 Darunavir (Prezista) 800 mg DAILY ORAL 07/13/17 12:00 08/12/17 11:59 Dextrose/Sodium Chloride 1,000 ml @ 100 mls/hr Q10H IV 07/11/17 21:45 08/10/17 21:44 07/14/17 05:18 Emtricitabine (Emtriva) 200 mg DAILY ORAL 07/13/17 12:00 08/12/17 11:59 Famciclovir (Famvir) 500 mg TID ORAL 07/12/17 09:00 08/11/17 08:59 07/14/17 10:50 Famotidine (Pepcid) 20 mg BID ORAL 07/12/17 18:00 08/11/17 17:59 07/14/17 10:49 Gabapentin (Neurontin) 300 mg THREE TIMES A DAY ORAL 07/12/17 09:00 08/11/17 08:59 07/14/17 10:50 Metronidazole 100 ml @ 100 mls/hr Q8HR IVPB 07/11/17 22:00 07/18/17 21:59 07/14/17 05:19 Nystatin (Nystatin) 5 ml QID ORAL 07/12/17 13:00 07/19/17 12:59 07/14/17 10:50 Ondansetron HCl (Zofran) 4 mg Q6HR PRN IVP Nausea & Vomiting 07/11/17 21:45 08/10/17 21:44 07/13/17 08:36 Ritonavir (Norvir) 100 mg DAILY ORAL 07/13/17 12:00 08/12/17 11:59 Tenofovir Disoproxil Fumarate (Viread) 300 mg DAILY ORAL 07/13/17 12:00 08/12/17 11:59 Venlafaxine HCl (Effexor-XR) 75 mg DAILY ORAL 07/12/17 09:00 08/11/17 08:59 07/14/17 10:50 BOBBI RON Jul 14, 2017 12:12
--- NOTE | 2017-07-14 12:19 | Wound Care Consultation ---
Wound Assessment Wound Assessment #1: Wound Number: 1 Wound Present on Admission: Yes New Wound: No Status Change of Wound: No Wound Location Body Site Modif: mid Wound Location Body Site: sacral Wound Type: pressure ulcer Bonny Test: Does not Bonny Pressure Ulcer Stage: II Wound Thickness: Partial Thickness Wound Length: 2.0 Wound Width: 2.0 Wound Depth: 0.1 Percent of Wound Birch Tree/Red: 100 Wound Drainage Description: Serosanguineous Wound Drainage Amount: Scant Wound Drainage Odor: None/Absent Tissue Surrounding Wound: Macerated Wound General Appearance: Reddened, Draining Wound Assessment #2: Wound Number: 2 Wound Present on Admission: Yes New Wound: No Status Change of Wound: No Wound Location Body Site Modif: mid Wound Location Body Site: coccyx Wound Type: pressure ulcer Bonny Test: Does not Bonny Pressure Ulcer Stage: II Wound Thickness: Partial Thickness Wound Length: 1.5 Wound Width: 1.5 Wound Depth: less than 0.1 Percent of Wound Birch Tree/Red: 100 Wound Drainage Description: Serosanguineous Wound Drainage Amount: Scant Wound Drainage Odor: None/Absent Tissue Surrounding Wound: Macerated Wound General Appearance: Reddened, Draining Wound Assessment #3: Wound Number: 3 Wound Present on Admission: Yes New Wound: No Status Change of Wound: No Wound Location Body Site Modif: mid Wound Location Body Site: perianal Wound Type: erosion Bonny Test: Does not Bonny Wound Thickness: Full Thickness Wound Length: 5.0 Wound Width: 5.0 Percent of Wound Birch Tree/Red: 60 Percent of Wound Bed Yellow/Wh: 40 Wound Drainage Description: Serosanguineous Wound Drainage Amount: Scant Wound Drainage Odor: None/Absent Tissue Surrounding Wound: Macerated Wound General Appearance: Reddened, Draining Wound Comment #1 Sacral stage II pressure ulcer #2 Coccygeal area stage II pressure ulcer #3 Perianal area full thickness erosion Recommendation -Local wound care per protocol -Keep clean and dry -Turn and reposition -Offload both heels -Heel protector on both heels -Optimize nutrition -Low air loss mattress -Assess and f/u accordingly for any changes LENNIE LINDER RN Jul 14, 2017 12:19
--- NOTE | 2017-07-14 17:15 | Progress Note ---
DATE: 07/14/2017 SUBJECTIVE: The patient is in room, uncooperative, and noncompliant with medication procedure. The patient has been ordering food and has been eating well. However, complaining of nausea and vomiting. Refuses CT of abdomen today. The patient is anxious and uncooperative during the examination. The patient stated that he wants to leave. He is able to understand, process, communicate, and appreciate information given to him in regards to his medical condition. MENTAL STATUS EXAMINATION: The patient is alert and oriented times self, place, situation, and time. Mood is anxious. Affect is constricted. Congruent with mood. Thought process is concrete. Thought content, no suicidal or homicidal ideations. No delusions. Insight and judgment is poor. ASSESSMENT: Anxiety disorder. The patient has capacity to make decisions. The patient is not a danger to self or others. PLAN: The patient will be discharged with a followup plan. He, however, has an outpatient psychiatrist. The patient is not a danger to self or others. Valeriy Burger M.D. DR: IVANNA JOB#: [id number] CC:
--- NOTE | 2017-07-14 23:15 | General Progress Note ---
Assessment/Plan Assessment/Plan Assessment - AIDS - Claribel esophagitis - N/V - improved - Diarrhea - improved - h/o HEP B - ? h/o colon CA Recommendations - Nystatin trial - ID eval - check CT abd/pelvis - pending - stool cultures - check tumor markers - hepatitis serologies pending Subjective Allergies: Coded Allergies: No Known Allergies (Unverified , 07/11/17) Subjective Feels OK no abd pain throat slightly better d/w patient re Rx plan Objective Last 24 Hour Vital Signs Date Time Temp Pulse Resp B/P (MAP) Pulse Ox O2 Delivery O2 Flow Rate FiO2 07/14/17 08:00 97.6 77 18 110/70 93 Intake and Output 07/13/17 07/14/17 19:00 07:00 Intake Total 560 ml 200 ml Balance 560 ml 200 ml Intake Oral 560 ml IV Total 200 ml # Voids 4 4 Height (Feet): 6 Height (Inches): 0.00 Weight (Pounds): 135 Objective Thin WM NCAT supple CTA RRR soft ND NT no edema PRASHANTH HUDSON Jul 14, 2017 23:15
--- NOTE | 2017-07-14 23:59 | General Progress Note ---
Assessment/Plan Assessment/Plan 1. Pancytopenia, likely secondary to underlying history of human immunodeficiency virus/acquired immunodeficiency syndrome in the setting of his low CD4 count, --> currently hepatitis panel remains pending, human immunodeficiency virus status pending, check CD4 count. --> ID Service consulted. --> Trend cbc and monitor closely. --> Patient has refused recent blood draws. 2. Anemia due to underlying chronic disease. --> Anemia workup reviewed. --> Hemoglobin goal is above 7. 3. Leukopenia, likely secondary to again underlying human immunodeficiency virus /acquired immunodeficiency syndrome in addition to underlying colitis. 4. Transaminitis, elevated liver function tests. Continue to closely monitor. 5. Severe protein-calorie malnutrition. 6. Diarrhea, currently is on Bactrim antibiotics. Subjective Date patient seen: Jul 14, 2017 Constitutional: Denies: no symptoms, chills, diaphoresis, fever, malaise, weakness, other HEENT: Denies: no symptoms, eye pain, blurred vision, tearing, double vision, ear pain, ear discharge, nose pain, nose congestion, throat pain, throat swelling, mouth pain, mouth swelling, other Cardiovascular: Denies: no symptoms, chest pain, edema, irregular heart rate, lightheadedness, palpitations, syncope, other Respiratory: Denies: no symptoms, cough, orthopnea, shortness of breath, SOB with excertion, SOB at rest, sputum, stridor, wheezing, other Gastrointestinal/Abdominal: Denies: no symptoms, abdomen distended, abdominal pain, black stools, tarry stools, blood in stool, constipated, diarrhea, difficulty swallowing, nausea, poor appetite, poor fluid intake, rectal bleeding , vomiting, other Genitourinary: Denies: no symptoms, burning, discharge, frequency, flank pain, hematuria, incontinence, pain, urgency, other Allergies: Coded Allergies: No Known Allergies (Unverified , 07/11/17) Subjective Uncooperative and desires to leave. Objective Last 24 Hour Vital Signs Date Time Temp Pulse Resp B/P (MAP) Pulse Ox O2 Delivery O2 Flow Rate FiO2 07/14/17 08:00 97.6 77 18 110/70 93 Intake and Output 07/13/17 07/14/17 19:00 07:00 Intake Total 560 ml 200 ml Balance 560 ml 200 ml Intake Oral 560 ml IV Total 200 ml # Voids 4 4 Height (Feet): 6 Height (Inches): 0.00 Weight (Pounds): 135 General Appearance: agitated Dex Durham Jul 14, 2017 23:59
--- NOTE | 2017-07-16 12:21 | Discharge Summary ---
Discharge Summary Hospital Course Date of Admission Jul 11, 2017 at 18:04 Date of Discharge Jul 14, 2017 at 14:50 Admitting Diagnosis weakness, colitis, vomiting HPI Ilya Bean is a 46 year old male who was admitted on Jul 11, 2017 at 18: 04 for Weakness, Colitis, Vomiting Hospital Course dc summary #[id number] Discharge Medications Continued Medications: Azithromycin* (Zithromax*) 600 Mg Tablet 1200 MG PO ONCE A WEEK Cyclobenzaprine Hcl* (Flexeril*) 10 Mg Tablet 10 MG PO THREE TIMES A DAY Emtricitabine/Tenofov Alafenam (Descovy 200-25 mg Tablet) 1 Each Tablet 200 MG PO DAILY Famciclovir* (Famvir*) 500 Mg Tablet 500 MG ORAL TID, TAB Filgrastim (Neupogen) 300 Mcg/0.5 Ml Syringe 300 MCG SUBQ 3XW MWF only Fluconazole (Fluconazole) 100 Mg Tablet 100 MG ORAL DAILY, #7 TAB 0 Refills Fluconazole (Fluconazole) 200 Mg Tablet 200 MG PO DAILY Gabapentin* (Gabapentin*) 300 Mg Capsule 300 MG ORAL THREE TIMES A DAY, CAP 0 Refills Hydromorphone Hcl (Hydromorphone Hcl) 4 Mg Tablet 4 MG PO EVERY 4 HOURS Ibuprofen (Ibuprofen) 600 Mg Tablet 600 MG PO EVERY 6 HOURS Loperamide HCl (Loperamide) 2 Mg Capsule 2 MG PO NEEDED take 2 tabs after first loose stool, and one tab after next bowel movement; do not exceed 16mg in 24 HRS Lorazepam* (Lorazepam*) 0.5 Mg Tablet 0.5 MG PO FOUR TIMES A DAY Olanzapine* (Zyprexa*) 10 Mg Tablet 10 MG ORAL DAILY, #30 TAB 0 Refills Sulfamethoxazole/Trimethoprim Ds Tablet* (Sulfamethoxazole-Tmp Ds Tablet*) 1 Each Tablet 800 MG PO DAILY Venlafaxine Hcl* (Effexor*) 37.5 Mg Tablet 75 MG ORAL DAILY, TAB Discharge Condition Upon Discharge: stable Discharge Disposition Patient was discharged to Recup care Discharge Diagnoses: Discharge Instructions Discharge Instructions Special Instructions I have been assigned to complete a D/C Summary on this account. I was not involved in the patient management Dionne Henry NP (Vanchtein) Jul 16, 2017 12:21
--- NOTE | 2017-07-17 00:45 | Discharge Summary 2 SIG ---
DATE OF ADMISSION: 07/11/2017 DATE OF DISCHARGE: 07/14/2017 REASON FOR ADMISSION: 46-year-old male with history of AIDS, presented to emergency department with abdominal pain, nausea, vomiting, and diarrhea. Pain described as cramping, nonradiating, and lasted for three days. The patient reported that he has a full blown acquired immunodeficiency syndrome with very low CD4 count. He denied fever, chills, chest pain, or shortness of breath. The patient stated that he has a history of hepatitis B and questionable history of colon cancer. Vital signs were stable. Complete blood count showed pancytopenia with WBC- 2.5, hemoglobin -10.4, hematocrit -31.1, and platelets -83,000. Lactic acid -1.4. Stable renal parameters and electrolytes. Elevated AST of 69 and alkaline phosphatase -220. Albumin- 2.2. Urinalysis negative for urinary tract infection. The patient was admitted with diagnoses of probable colitis, AIDS, pancytopenia, severe protein-calorie malnutrition, and abnormal LFT. HOSPITAL COURSE: The patient was admitted. The patient was started on supportive care. The patient was started on IV fluids. GI and ID consults were requested. Upon evaluation, GI seen the patient and diagnosed him with Claribel pharyngitis and likely Claribel esophagitis. The patient was started on trial of nystatin and Fluconazole. Antiemetic provided as needed. Stool culture and stool for C. diff were ordered. Hepatitis panel and hepatitis markers were ordered. ID seen and evaluated the patient. The patient was started on empiric Flagyl. Concern for colitis with clinical presentation, possible cytomegalovirus colitis versus ischemic colitis versus C. diff colitis versus gastroenteritis. CT of the abdomen and pelvis was ordered. However, the patient declined to have CT scan. Chest x-ray was negative. CD4 count was 10 and viral count was over 80,000. Blood cultures were negative. Flagyl was discontinued. Patient declined further laboratories tests as ordered. Psychiatrist seen and evaluated the patient , stated that the patient had the capacity to make his own informed decision. The patient was not in danger to self or to others. The patient declined further care and wanted to leave. Wound care nurse seen the patient for sacral decubitus stage II, present on admission and coccyx decubitus stage II, present on admission. Wound care provided as per wound care nurse recommendation. Bear Keeper seen and evaluated the patient and evaluated anemia workup. According to customer success representative, pancytopenia was likely secondary to underlying history of human immunodeficiency virus in the setting of very low CD4 count. The patient refused further blood draws. Anemia workup revealed anemia due to the chronic disease. Hemoglobin goal to keep it above 7. Leukopenia as well was likely secondary to underlying AIDS in addition to underlying colitis. Dietary recommendation implemented while in the hospital. Diarrhea stopped. Placement was arranged to recuperative care. Human immunodeficiency virus medications were continued. Antidiarrheal prescribed as needed. The patient was also prescribed prophylactic antibiotics such as Bactrim, azithromycin, and continue with fluconazole. FINAL DIAGNOSES: 1. Probable colitis. 2. Acquired immunodeficiency syndrome (CD4 count 10). 3. Pancytopenia. 4. Severe protein-calorie malnutrition. 5. Claribel esophagitis. 6. Abnormal LFT. 7. Anemia of chronic disease. 8. History of hepatitis B. 9. Questionable history of colon cancer. 10. Sacral decubitus stage II, present on admission. 11. Coccyx decubitus stage II, present on admission. DISCHARGE INSTRUCTIONS: The patient was discharged to recuperative care. Follow up with the primary care provider. Reinforced compliance with medication. DISCHARGE MEDICATIONS: See medication reconciliation list. Julio Michaud M.D. I have been assigned to dictate discharge summary on this account and I was not involved in the patient's management. Dionne Henry (Vanchtein) N.P. DR: PEDRO PABLO JOB#: [id number] CC: REBECCA
== END 2017-07-14 14:50 | disposition home or self-care (01) | DRG 977 ==
LOC: EDBD 15:42 → EMR 15:55 → 4E 18:04 → EDBEDREQ 21:19
DX: K52.9 Noninfective gastroenteritis and colitis, unspecified (principal); B20 Human immunodeficiency virus [HIV] disease; E43 Unspecified severe protein-calorie malnutrition; B37.81 Candidal esophagitis; D61.818 Other pancytopenia; L89.152 Pressure ulcer of sacral region, stage 2; D63.8 Anemia in other chronic diseases classified elsewhere; E11.9 Type 2 diabetes mellitus without complications; Z68.1 Body mass index [BMI] 19.9 or less, adult; Z85.038 Personal history of other malignant neoplasm of large intestine; Z86.19 Personal history of other infectious and parasitic diseases; E86.0 Dehydration; Z91.14 Patient's other noncompliance with medication regimen; F41.9 Anxiety disorder, unspecified; Z66 Do not resuscitate
CPT/HCPCS: 36415; 71045; 80053; 81003; 82607; 82728; 82746; 83540; 83550; 83605; 83615; 85007; 85025; 85044; 86360; 87040; 87081; 87536; 99285; J2405